=== PATIENT | female | born 1970 | race Caucasian/White ===

== ENCOUNTER → 2024-05-30 14:25 | Outpatient (CLI) | payer MEDICARE, MEDICAID, SELFPAY ==
--- NOTE | 2024-05-30 | DI.MG.S_ITS ---
BILATERAL DIGITAL SCREENING MAMMOGRAM 3D/2D WITH CAD: 05/30/2024 CLINICAL: Routine screening. Family history of breast cancer. Comparison is made to exams dated: 08/25/2021 mammogram and 08/15/2020 mammogram - [facility] [place]. There are scattered areas of fibroglandular density (category b / 25%-50% glandular tissue). Current study was also evaluated with a Computer Aided Detection (CAD) system. No significant masses, calcifications, or other findings are seen in either breast. There has been no significant interval change. IMPRESSION: NEGATIVE There is no mammographic evidence of malignancy. A 1 year screening mammogram is recommended. Based on the Tyrer Cuzick model (a risk assessment model) the patient's lifetime risk is 8.3% and her 10 year risk is 2.4%. According to the ACR, ACS, and NCCN guidelines, an annual breast MRI exam along with mammogram is recommended if the patient's lifetime risk is 20% or greater. This exam was interpreted at Station ID: [id number]. NOTE: For mammograms, a report in lay terms will be sent to the patient. Approximately 15% of breast malignancies will not be visualized mammographically. In the management of a palpable breast mass, a negative mammogram must not discourage biopsy of a clinically suspicious lesion. Electronically Signed By: Amarjit colon/amelia:05/30/2024 17:04:04 letter sent: Normal Exam ACR BI-RADS Category 1: Negative
== END ==
LOC: MAMMO 14:27
DX: Z12.31 Encounter for screening mammogram for malignant neoplasm of breast (principal); Z80.3 Family history of malignant neoplasm of breast
CPT/HCPCS: 77063; 77067

== ENCOUNTER → 2024-12-28 13:43 | Outpatient (CLI) | payer MEDICARE, MEDICAID, OTHER, SELFPAY ==
--- NOTE | 2024-12-28 13:46 | DI.CT.S_ITS ---
PROCEDURE: CT LUNG LOW DOSE SCREENING INDICATIONS: Lung cancer screening TECHNIQUE: Noncontrast 2.0-2.5 mm thick sections acquired from the pulmonary apices to the posterior costophrenic angles. 7 mm thick axial MIP, and 5 mm coronal and sagittal reformats were then acquired. For radiation dose reduction, the following was used: automated exposure control, adjustment of mA and/or kV according to patient size. COMPARISON: None. FINDINGS: Image quality: Diagnostic. Lower Neck: No enlarged lymph nodes. Thyroid: No thyroid nodules which require sonographic follow up, per consensus guidelines. Axillae: No enlarged lymph nodes. Chest Wall: Unremarkable. Bones: Unremarkable. Lungs and Pleura: No pneumothorax or pleural effusions. No consolidation or suspicious nodules. Heart: Heart size is normal. No pericardial effusion. Thoracic Vessels: The aorta and pulmonary arteries demonstrate normal size. Mediastinum and Audrey: No enlarged lymph nodes. Esophagus: No wall thickening. No hiatal hernia. Upper Abdomen: Visualized upper abdomen solid organs and bowel loops appear normal. IMPRESSION: No suspicious pulmonary nodules. LUNG-RADS 1; continued annual screening, if eligible. Clinically Significant Non-pulmonary Findings: None. Dictated by: Kofi Craig M.D. on 12/30/2024 at 15:05 Approved by: Kofi Craig M.D. on 12/30/2024 at 15:09
== END ==
PROVIDERS: PCP Family Medicine; Referring Provider Family Medicine; Visit Provider Family Medicine
DX: Z87.891 Personal history of nicotine dependence (principal)
CPT/HCPCS: 71271

== ENCOUNTER 2025-01-10 08:08 | Day surgery (SDC) | payer MEDICARE, MEDICAID, OTHER, SELFPAY ==
--- NOTE | 2025-01-10 | PATH_ITS ---
[facility] Accession Number: [id number] No. of containers..02 Tissue . 01 Material submitted: . PART A: colon - COLON, POLYP @ 50 CM PART B: colon - COLON, POLYP @ SIGMOID . 01 Diagnosis: Part A: COLON, POLYP @ 50 CM: Hyperplastic polyp. . Part B: COLON, POLYP @ SIGMOID: Tubular adenoma. Hyperplastic polyp. STO 01/12/2025 1423 Local . 01 Electronically signed: . Brayan Hills MD, Pathologist NPI- [id number] . 01 Gross description: . Part A: COLON, POLYP @ 50 CM: Received in formalin is 1 fragment(s) of em, soft tissue measuring 0.5 x 0.3 x 0.3 cm submitted entirely in 1 cassette(s) . Part B: COLON, POLYP @ SIGMOID: Received in formalin are 3 fragment(s) of em, soft tissue measuring 0.3 x 0.3 x 0.3 cm to 0.6 x 0.6 x 0.6 cm submitted entirely in 1 cassette(s) /JAMES 01/12/2025 1423 Local . 01 Pathologist provided ICD-10: D12.5, K63.5 . 01 CPT . 281053, 006338 Specimen Comment: A courtesy copy of this report has been sent to [phone] Performed at: [address] [id number] MD Brayan Hills MD Phone: [phone]
--- NOTE | 2025-01-10 08:49 | PM.HP.IH.1 ---
History of Present Illness History of Present Illness Date Patient Seen: 01/10/25 Chief complaint: Colonoscopy Meds Home Medications and Allergies Home Medications Medication Instructions Recorded Confirmed Type sodium,potassium,mag sulfates 17.5 See Rx Instructions PO .COMPLEX 12/07/24 Rx gram-3.13 gram-1.6 gram oral soln #354 mL (Suprep Bowel Prep Kit) Allergies Allergy/AdvReac Type Severity Reaction Status Date / Time gabapentin AdvReac Dizziness Verified 01/10/25 08:49 morphine AdvReac Vomiting Verified 01/10/25 08:49 tramadol AdvReac Dizziness Verified 01/10/25 08:49 Exam Narrative Exam Narrative: Oropharynx free of lesions Chest clear to auscultation percussion Cardiac exam reveals no S3 or murmur Assessment & Plan Assessment & Plan narrative: History of adenomatous colon polyps with family history of colon polyps in her father and colon cancer in a grandfather. Need for follow-up colonoscopy. Risks, benefits, alternatives have been explained. Time-Based Coding :: [TOTAL MINUTES] spent with patient and on the chart (including review of chart, obtaining history, exam, reviewing outside data, placing orders, documenting exam and treatment plan, and counseling patient) on [DATE]. [employer] Document charge(s): No
--- NOTE | 2025-01-10 08:51 | PM.OP.COLON ---
Operative Date/Time/Diagnoses Date of procedure: 01/10/25 Time of procedure: 10:09 Pre-op diagnosis: See indication and findings Post-op diagnosis: same Procedure & Clinicians Same procedure as scheduled: Yes Indications: Family history of colon cancer and polyps Surgeon: Jessica Bullock Procedure Notes Procedure in detail: After informed consent was obtained the patient was placed in left lateral decubitus position. The video colonoscope was introduced the rectum slowly advanced cecum. Preparation was good. On slow withdrawal mucosa was carefully examined. The scope was removed. The patient tolerated the procedure well. Blood loss none Complications none Sedation mac Findings 1. Scattered sigmoid diverticulosis 2. 4 mm polyp at 50 cm Jumbo biopsy removed 3. To diminutive polyps in the sigmoid removed with Jumbo biopsy forceps. In the same bottle was placed a 6 mm polyp which was removed with snare. 4. Otherwise negative colonoscopy to cecum Patient's procedure was not particularly difficult. This was performed with a adult colonoscope.
[2025-01-10 08:55] VITALS: BP 100/68; PULSE 64; RESP 17; TEMP 36.3; O2SAT 94
[2025-01-10] MEDS: LACTATED RINGERS 1,000 ML 42 ML IV (09:04)
[2025-01-10 10:11] VITALS: BP 94/57; PULSE 63; RESP 16; TEMP 36.4; O2SAT 98
[2025-01-10 10:16] VITALS: BP 81/57; PULSE 61; RESP 16; O2SAT 100
[2025-01-10 10:21] VITALS: BP 99/58; PULSE 63; RESP 16; TEMP 36.4; O2SAT 100
== END 2025-01-10 10:50 | disposition home or self-care (01) ==
PROVIDERS: PCP Family Medicine; Referring Provider Internal Medicine Gastroenterology; Visit Provider Internal Medicine Gastroenterology
PROC: 0DJD8ZZ Inspection of Lower Intestinal Tract, Via Natural or Artificial Opening Endoscopic (ICD-10-PCS; CPT 45378; principal; 2025-01-10 09:30)
DX: Z12.11 Encounter for screening for malignant neoplasm of colon (principal); Z83.719 Family history of colon polyps, unspecified; Z80.0 Family history of malignant neoplasm of digestive organs; K57.30 Diverticulosis of large intestine without perforation or abscess without bleeding; D12.5 Benign neoplasm of sigmoid colon; K63.5 Polyp of colon
CPT/HCPCS: 45385; 45380; J2704

== ENCOUNTER → 2025-06-05 10:56 | Outpatient (CLI) | payer MEDICARE, MEDICAID, OTHER, SELFPAY ==
--- NOTE | 2025-06-05 10:57 | DI.MG.S_ITS ---
MM screening mammo BI: 06/05/2025. BI-RADS: 1 CLINICAL: 55-year old female for bilateral screening mammogram. Tyrer-Cuzick lifetime risk of 8.1%. No personal or first-degree family history of breast cancer. Current reported family history of breast cancer: paternal aunt. PRIOR EXAMS 05/30/2024, 08/15/2020. MAMMOGRAPHY TECHNIQUE: 2D and 3D (tomosynthesis) digital mammographic views obtained, with additional images as needed for full coverage. Current study was also evaluated with a Computer Aided Detection (CAD) system. DENSITY B. There are scattered areas of fibroglandular density. MAMMOGRAPHY FINDINGS Bilateral: No suspicious mass, asymmetry, microcalcification, or other abnormality seen. IMPRESSION: * No evidence of malignancy. RECOMMENDATIONS Bilateral * Annual screening mammography. OVERALL ASSESSMENT CATEGORY BI-RADS-1: Negative. The [employer] recommends annual screening mammography beginning at age 40 for women with average risk of breast cancer. ELECTRONICALLY SIGNED: Nirmala Hernandez M.D. on 06/05/2025 at 10:44:44 PM PT Interpreting Station ID: [id number]
== END ==
PROVIDERS: PCP Family Medicine; Referring Provider Family Medicine; Visit Provider Family Medicine
DX: Z12.31 Encounter for screening mammogram for malignant neoplasm of breast (principal); Z80.3 Family history of malignant neoplasm of breast
CPT/HCPCS: 77063; 77067